=== PATIENT | female | born 1950 | race Caucasian/White ===

== ENCOUNTER → 2017-05-06 | Outpatient (CLI) | payer MEDICARE ==
[2017-05-06 12:35] LABS: BLOOD UREA NITROGEN 16 mg/dL (7-20); CALCIUM 9.2 mg/dL (8.4-10.2); CHLORIDE 92 mmol/L (98-107); GLUCOSE 134 mg/dL (75-110); SODIUM 142.1 mmol/L (137-145)
[2017-05-06 12:43] LABS: ANION GAP 11 (5-19)
[2017-05-06 12:53] LABS: CARBON DIOXIDE 39 mmol/L (22-30)
[2017-05-06 13:11] LABS: MAGNESIUM 1.2 mg/dL (1.6-2.3)
== END ==
LOC: OD 10:44
PROVIDERS: ATTEND Internal Medicine Cardiovascular Disease
DX: E83.42 Hypomagnesemia (principal); E87.5 Hyperkalemia
CPT/HCPCS: 36415; 80048; 83735